=== PATIENT | female | born 1970 | race Caucasian/White ===

== ENCOUNTER 2022-11-26 14:53 | Emergency (ER) | payer BC, SELFPAY ==
[2022-11-26 15:03] VITALS: BP 148/96; PULSE 73; RESP 18; TEMP 36.2; O2SAT 98; BMI 28.3
--- NOTE | 2022-11-26 15:23 | ED_ITS ---
HPI - General Adult General Chief complaint: Unspecified Complaint, Adult Stated complaint: rectal bleeding Time Seen by Provider: 11/26/22 15:14 History of Present Illness HPI narrative: rectal bleeding x a month. over the last 1 -2 years hx of constipation with fissure and hemrroids. now finding blood when ever she wipes rectum. states she has a prolapse that started a few weeks ago. thinks she has a parasite. docotor [place]. a lot of bloating and gas lately. exhausted. 52-year-old woman presenting to the emergency department the number of complaints. She has been struggling with constipation noting history of fissure and hemorrhoids. She is actually finding blood now dripping out on the floor sometimes. Persistent bleeding when wiping after bowel movements. She believe she has got a rectal prolapse starting maybe a couple weeks ago. Increasingly tired. Months of bloating and gas she says. Normally sees primary care provider at the [facility] [place] in [place] who is out of the country at the moment. Is concerned that she has a parasite. Lives in town and has dogs. Notes that her kids play in sand box at school. Otherwise does not identify any particular source. No rash. Nuclear IBS history. Later mentions that she has been having some low back pain across her low back over the last week. Does recall specific injury. More remote history of back pain and history of ablation. Related Data Home Medications Medication Instructions Recorded Confirmed No Known Home Medications 11/26/22 11/26/22 Allergies Allergy/AdvReac Type Severity Reaction Status Date / Time No Known Drug Allergies Allergy Verified 11/26/22 15:07 Review of Systems Status of ROS: Reports: 6 or more systems reviewed and unremarkable except as noted in History and below [facility] Social History Smoking Status: Former smoker How often do you have a drink containing alcohol: never AUDIT-C Alcohol total score: 0 Non-prescribed substance use: denies use Exam Narrative: Exam Narrative: New pleasant. Wearing glasses. Interacting with her phone. Breathing easily. Lungs are clear. Heart in regular rate and rhythm. Abdomen with normoactive bowel sounds. Generally full. No appreciable masses. Well-perfused peripherally. Lower extremities are without edema. Skin is warm and dry without evidence of rash.. Transitions in the bed without notable difficulty. With machine group leader present I do evaluate the anal area. There is are noninflamed hemorrhoidal tissue at the 6 o'clock position along with small amount at the 12 o'clock position with a divot that I would associate with possible fissure. Suggestion of smaller hemorrhoidal tissue with a small thrombus at the 2 o'clock position; very subtle. Noninflamed nor tender here. Placement anoscope I do not see any active bleeding although small spot of blood forms at the distal aspect of the anoscope. Const: Vital Signs, click to edit/add: Vital Signs - 24 hr 11/26/22 15:03 Temperature 97.1 F L Pulse Rate [Pulse Oximeter] 73 Respiratory Rate 18 Blood Pressure [Ri ght Upper Arm] 148/96 H Pulse Oximetry 98 Oxygen Delivery Me thod Room Air Documenting provider has reviewed patient's vital signs: yes Course Vital Signs Vital signs: Initial Vital Signs Temperature 97.1 F L 11/26/22 15:03 Temperature Source Temporal Artery Scan 11/26/22 15:03 Pulse Rate 73 11/26/22 15:03 Respiratory Rate 18 11/26/22 15:03 Blood Pressure 148/96 H 11/26/22 15:03 Blood Pressure Mean 113 H 11/26/22 15:03 Blood Pressure Position Supine 11/26/22 15:03 Pulse Oximetry 98 11/26/22 15:03 Oxygen Delivery Method Room Air 11/26/22 15:03 Vital Signs Temperature 97.1 F L 11/26/22 15:03 Pulse Rate 73 11/26/22 15:03 Respiratory Rate 18 11/26/22 15:03 Blood Pressure 148/96 H 11/26/22 15:03 Pulse Oximetry 98 11/26/22 15:03 Oxygen Delivery Method Room Air 11/26/22 15:03 Temperature 97.1 F L 11/26/22 15:03 Pulse Rate 73 11/26/22 15:03 Respiratory Rate 18 11/26/22 15:03 Blood Pressure 148/96 H 11/26/22 15:03 Pulse Oximetry 98 11/26/22 15:03 Oxygen Delivery Method Room Air 11/26/22 15:03 Medical Decision Making MDM Narrative Medical decision making narrative: She does have some concerns of potential anemia given this recent bleeding. I do not see any brisk bleeding. We can check labs though. The for any indication of parasitic infection though I think this is unlikely. Likely will need to be providing treatment for constipation. With this in mind also TSH. Abdominal x-ray be done as well. Constipation probably contributing to some no passage bleeding. Would anticipate the need for colonoscopy at some point outpatient. Reassuring labs. By my read there is large amount of colonic stool. No air-fluid levels on x- ray. Did dispense lidocaine patch. No further interventions. See patient discharge plan Lab Data Lab results reviewed: Yes I reviewed the patient's lab results Labs: Lab Results 11/26/22 Range/Units 16:00 WBC 6.67 (4.50-11.00) K/uL RBC 4.34 (4.00-5.20) m/uL Hgb 13.0 (12.0-16.0) gm/dL Hct 39.2 (33.0-51.0) % MCV 90 (80-100) fL MCH 30 (26-34) pg MCHC 33 (32-36) gm/dL RDW Coeff of Shreyas 12.5 (11.5-15.5) % Plt Count 317 (140-440) K/uL Neut % (Auto) 61.7 (42.0-72.0) % Lymph % (Auto) 27.7 (20-44) % [place] % (Auto) 8.4 (0.0-11.0) % Eos % (Auto) 1.5 (0.0-7.0) % Baso % (Auto) 0.7 (0.0-3.0) % Neut # (Auto) 4.11 (1.7-7.0) K/uL Lymph # (Auto) 1.85 (0.90-2.90) K/uL [place] # (Auto) 0.60 (0.00-0.90) K/UL Eos # (Auto) 0.10 (0.00-0.50) K/uL Baso # (Auto) 0.05 (0.00-0.30) K/uL Abs Immat Gran (auto) 0.00 (0.00-0.30) K/uL Imm/Tot Granulo (auto) 0.0 % Sodium 138 (135-149) mmol/L Potassium 3.8 (3.6-5.1) mmol/L Chloride 104 (96-114) mmol/L Carbon Dioxide 24 (20-32) mmol/L Anion Gap 10 (7-15) mEq/L BUN 16 (7-30) mg/dL Creatinine 0.8 (0.5-1.5) mg/dL Estimated Creat Clear 69.42 Estimated GFR 88 ml/min Glucose 76 (60-115) mg/dL Calcium 9.0 (8.4-10.6) mg/dL C-Reactive Protein 0.6 (0.5-1.0) mg/dL TSH 0.414 (0.270-4.20) uIU/mL Discharge Plan Discharge Clinical Impression: Fatigue, Abdominal bloating, BRBPR (bright red blood per rectum), Sacroiliac joint pain, Constipation Patient Disposition: Home, Self-Care Condition: Improved Additional Instructions: Continue to focus on hydration. I would add a couple of doses of MiraLax equivalent to your fluids daily. Alternatively could use of fiber supplement like Benefiber equivalent. Adjust these additives to stool consistency as discussed. See how things are for 2 weeks. I would in that time try to establish primary care follow-up visit. At that visit you can discuss fatigue, workup for that, and any symptoms of abdominal bloating that may remain. Also whether not it would be time to pursue a repeat colonoscopy. Do your best to get quality and regular sleep. Try to get in a little heart pumping exercise daily. I will let you know if Radiology has anything further to say about your abdominal x-ray. If you think this lidocaine patch is helpful, can purchase more [id number]. See handout on sacroiliac pain for treatment and exercise recommendations. Might need follow-up with physical therapy; this could also be arranged to primary care. Prescriptions: No Action No Known Home Medications Follow Up/Referrals: Radha Miller MD [Staff Physician] - Stand Alone Forms: Disability Care Givers Info Instructions
--- OUTSIDE RECORDS SUMMARY | 2022-11-26 16:01 | XMS_ITS | Continuity of Care Document ---
Author Name Unknown Organization [facility] Address [address] [place] [address] Phone Care Team Providers Care Professor Of Geology Name Role Phone Miranda Farris MD Unavailable Unavailable Allergies, Adverse Reactions, Alerts Substance Reaction Status Criticality HYDROCODONE BITARTRATE Itching Active No In formation acetaminophen Itching Active No Information Medications Medication Instructions Dosage Effective Dates (start - stop) Status Comments Celebrex 200 mg capsule TAKE 1 CAPSULE B Y MOUTH TWICE A DAY - Active HYDROXYCHLOROQUINE 200 MG TAB TAKE 1 TABLET BY MOUTH TWICE A DAY 200 MG - Active HRT Base Botanical cream - Active naltrexone 50 mg tablet COMPOUNDED lower dose - Active PHENTERMINE HCL (unknown strength) take 1 capsule by oral route every day before breakfast Not Available - Active multivitamin Cap take 1 capsule by oral route every day - Active CELECOXIB 200 MG CAPSULE TAKE 1 CAPSULE BY MOUTH TWICE A DAY - No Longer Active Procedures Procedure Date Unlisted E&M Service No Show Simponi Aria (golimumab) Chemo, Iv Infusion, 1 Hr Normal Saline Solution Infus Simponi Aria (golimumab) Chemo, Iv Infusion, 1 Hr Normal Saline Solution Infus Office/Outpatient Visit, Est Routine Venipuncture Rbc Sed Rate, Nonautomated Assay Of Serum Albumin Assay Of Creatinine Transferase (Ast) (Sgot) Alanine Amino (Alt) (Sgpt) CReactive Protein Complete Cbc WAuto Diff Wbc Simponi Aria (golimumab) Chemo, Iv Infusion, 1 Hr Normal Saline Solution Infus Simponi Aria (golimumab) Chemo, Iv Infusion, 1 Hr Normal Saline Solution Infus Office/Outpatient Visit, Est Routine Venipuncture Rbc Sed Rate, Nonautomated Assay Of Serum Albumin Assay Of Creatinine Transferase (Ast) (Sgot) Alanine Amino (Alt) (Sgpt) CReactive Protein Complete Cbc WAuto Diff Wbc Simponi Aria (golimumab) Chemo, Iv Infusion, 1 Hr Normal Saline Solution Infus Simponi Aria (golimumab) Chemo, Iv Infusion, 1 Hr Normal Saline Solution Infus Office/Outpatient Visit, Est Routine Venipuncture Rbc Sed Rate, Nonautomated Assay Of Serum Albumin Assay Of Creatinine Transferase (Ast) (Sgot) Alanine Amino (Alt) (Sgpt) CReactive Protein Complete Cbc WAuto Diff Wbc Simponi Aria (golimumab) Chemo, Iv Infusion, 1 Hr Normal Saline Solution Infus Simponi Aria (golimumab) Chemo, Iv Infusion, 1 Hr Normal Saline Solution Infus Office/Outpatient Visit, Est Routine Venipuncture Rbc Sed Rate, Nonautomated Assay Of Serum Albumin Assay Of Creatinine Transferase (Ast) (Sgot) Alanine Amino (Alt) (Sgpt) CReactive Protein Complete Cbc WAuto Diff Wbc Simponi Aria (golimumab) Chemo, Iv Infusion, 1 Hr Normal Saline Solution Infus Office/Outpatient Visit, Est Routine Venipuncture Rbc Sed Rate, Nonautomated Assay Of Serum Albumin Assay Of Creatinine Transferase (Ast) (Sgot) Alanine Amino (Alt) (Sgpt) CReactive Protein Complete Cbc WAuto Diff Wbc Simponi Aria (golimumab) Chemo, Iv Infusion, 1 Hr Normal Saline Solution Infus Office/Outpatient Visit, Est Routine Venipuncture Specimen Handling Rbc Sed Rate, Nonautomated Assay Of Serum Albumin Assay Of Creatinine Transferase (Ast) (Sgot) Alanine Amino (Alt) (Sgpt) CReactive Protein Complete Cbc WAuto Diff Wbc Remicade Infliximab Chemo, Iv Infusion, 1 Hr Chemo, Iv Infusion, Addl Hr Normal Saline Solution Infus Remicade Infliximab Chemo, Iv Infusion, 1 Hr Chemo, Iv Infusion, Addl Hr Normal Saline Solution Infus Remicade Infliximab Chemo, Iv Infusion, 1 Hr Chemo, Iv Infusion, Addl Hr Normal Saline Solution Infus Office/Outpatient Visit, Est Routine Venipuncture Rbc Sed Rate, Nonautomated Assay Of Serum Albumin Assay Of Creatinine Transferase (Ast) (Sgot) Alanine Amino (Alt) (Sgpt) CReactive Protein Complete Cbc WAuto Diff Wbc Remicade Infliximab Chemo, Iv Infusion, 1 Hr Chemo, Iv Infusion, Addl Hr Normal Saline Solution Infus Remicade Infliximab Chemo, Iv Infusion, 1 Hr Chemo, Iv Infusion, Addl Hr Normal Saline Solution Infus Office/Outpatient Visit, Est Routine Venipuncture Rbc Sed Rate, Nonautomated Assay Of Serum Albumin Assay Of Creatinine Transferase (Ast) (Sgot) Alanine Amino (Alt) (Sgpt) CReactive Protein Complete Cbc WAuto Diff Wbc Remicade Infliximab Chemo, Iv Infusion, 1 Hr Chemo, Iv Infusion, Addl Hr Normal Saline Solution Infus Remicade Infliximab Chemo, Iv Infusion, 1 Hr Chemo, Iv Infusion, Addl Hr Office/Outpatient Visit, Est Routine Venipuncture Rbc Sed Rate, Nonautomated Assay Of Serum Albumin Assay Of Creatinine Transferase (Ast) (Sgot) Alanine Amino (Alt) (Sgpt) CReactive Protein Complete Cbc WAuto Diff Wbc Remicade Infliximab Chemo, Iv Infusion, 1 Hr Chemo, Iv Infusion, Addl Hr Normal Saline Solution Infus Remicade Infliximab Chemo, Iv Infusion, 1 Hr Chemo, Iv Infusion, Addl Hr Normal Saline Solution Infus Office/Outpatient Visit, Est Routine Venipuncture Rbc Sed Rate, Nonautomated Assay Of Serum Albumin Assay Of Creatinine Transferase (Ast) (Sgot) Alanine Amino (Alt) (Sgpt) CReactive Protein Complete Cbc WAuto Diff Wbc Remicade Infliximab Chemo, Iv Infusion, 1 Hr Chemo, Iv Infusion, Addl Hr Normal Saline Solution Infus Remicade Infliximab Chemo, Iv Infusion, 1 Hr Chemo, Iv Infusion, Addl Hr Normal Saline Solution Infus Office/Outpatient Visit, Est Routine Venipuncture Rbc Sed Rate, Nonautomated Assay Of Serum Albumin Assay Of Creatinine Transferase (Ast) (Sgot) Alanine Amino (Alt) (Sgpt) CReactive Protein Tb Test, Cell Immun Measure Complete Cbc WAuto Diff Wbc Remicade Infliximab Chemo, Iv Infusion, 1 Hr Chemo, Iv Infusion, Addl Hr Normal Saline Solution Infus Office/Outpatient Visit, Est Routine Venipuncture Complete Cbc WAuto Diff Wbc Rbc Sed Rate, Nonautomated Assay Of Serum Albumin Assay Of Creatinine Transferase (Ast) (Sgot) Alanine Amino (Alt) (Sgpt) CReactive Protein Remicade Infliximab Chemo, Iv Infusion, 1 Hr Chemo, Iv Infusion, Addl Hr Normal Saline Solution Infus Remicade Infliximab Chemo, Iv Infusion, 1 Hr Chemo, Iv Infusion, Addl Hr Normal Saline Solution Infus Remicade Infliximab Chemo, Iv Infusion, 1 Hr Chemo, Iv Infusion, Addl Hr Normal Saline Solution Infus Office/Outpatient Visit, Est Routine Venipuncture Rbc Sed Rate, Nonautomated CReactive Protein Assay Of Serum Albumin Assay Of Creatinine Transferase (Ast) (Sgot) Alanine Amino (Alt) (Sgpt) Complete Cbc WAuto Diff Wbc Remicade Infliximab Chemo, Iv Infusion, 1 Hr Chemo, Iv Infusion, Addl Hr Normal Saline Solution Infus Remicade Infliximab Chemo, Iv Infusion, 1 Hr Chemo, Iv Infusion, Addl Hr Normal Saline Solution Infus Office/Outpatient Visit, Est Routine Venipuncture Complete Cbc WAuto Diff Wbc Rbc Sed Rate, Nonautomated CReactive Protein Assay Of Serum Albumin Assay Of Creatinine Transferase (Ast) (Sgot) Alanine Amino (Alt) (Sgpt) Remicade Infliximab Chemo, Iv Infusion, 1 Hr Chemo, Iv Infusion, Addl Hr Normal Saline Solution Infus Remicade Infliximab Chemo, Iv Infusion, 1 Hr Chemo, Iv Infusion, Addl Hr Normal Saline Solution Infus Office/Outpatient Visit, Est Routine Venipuncture Complete Cbc WAuto Diff Wbc Rbc Sed Rate, Nonautomated CReactive Protein Assay Of Serum Albumin Assay Of Creatinine Transferase (Ast) (Sgot) Alanine Amino (Alt) (Sgpt) Remicade Infliximab Chemo, Iv Infusion, 1 Hr Chemo, Iv Infusion, Addl Hr Normal Saline Solution Infus Remicade Infliximab Chemo, Iv Infusion, 1 Hr Chemo, Iv Infusion, Addl Hr Normal Saline Solution Infus Office/Outpatient Visit, Est Routine Venipuncture Complete Cbc WAuto Diff Wbc Rbc Sed Rate, Nonautomated CReactive Protein Assay Of Serum Albumin Assay Of Creatinine Transferase (Ast) (Sgot) Alanine Amino (Alt) (Sgpt) Office/Outpatient Visit, Est Routine Venipuncture Complete Cbc WAuto Diff Wbc Rbc Sed Rate, Nonautomated CReactive Protein Assay Of Serum Albumin Assay Of Creatinine Transferase (Ast) (Sgot) Alanine Amino (Alt) (Sgpt) Office/Outpatient Visit, Est Routine Venipuncture Complete Cbc WAuto Diff Wbc Rbc Sed Rate, Nonautomated CReactive Protein Assay Of Serum Albumin Assay Of Creatinine Transferase (Ast) (Sgot) Alanine Amino (Alt) (Sgpt) Office/Outpatient Visit, Est Routine Venipuncture Complete Cbc WAuto Diff Wbc Rbc Sed Rate, Nonautomated CReactive Protein Assay Of Serum Albumin Assay Of Creatinine Transferase (Ast) (Sgot) Alanine Amino (Alt) (Sgpt) Office/Outpatient Visit, Est Routine Venipuncture Complete Cbc WAuto Diff Wbc Rbc Sed Rate, Nonautomated CReactive Protein Assay Of Serum Albumin Assay Of Creatinine Transferase (Ast) (Sgot) Alanine Amino (Alt) (Sgpt) Specimen Handling Office/Outpatient Visit, Est Routine Venipuncture Complete Cbc WAuto Diff Wbc Rbc Sed Rate, Nonautomated CReactive Protein Assay Of Serum Albumin Assay Of Creatinine Transferase (Ast) (Sgot) Alanine Amino (Alt) (Sgpt) Office/Outpatient Visit, Est Office/Outpatient Visit, Est Office/Outpatient Visit, Est Routine Venipuncture Complete Cbc WAuto Diff Wbc Rbc Sed Rate, Nonautomated CReactive Protein Assay Of Serum Albumin Assay Of Creatinine Transferase (Ast) (Sgot) Alanine Amino (Alt) (Sgpt) Office/Outpatient Visit, Est Routine Venipuncture Complete Cbc WAuto Diff Wbc Rbc Sed Rate, Nonautomated CReactive Protein Assay Of Serum Albumin Assay Of Creatinine Transferase (Ast) (Sgot) Alanine Amino (Alt) (Sgpt) Office/Outpatient Visit, Est Routine Venipuncture Complete Cbc WAuto Diff Wbc Rbc Sed Rate, Nonautomated CReactive Protein Assay Of Serum Albumin Assay Of Creatinine Transferase (Ast) (Sgot) Alanine Amino (Alt) (Sgpt) Office/Outpatient Visit, Est Routine Venipuncture Complete Cbc WAuto Diff Wbc Rbc Sed Rate, Nonautomated CReactive Protein Assay Of Serum Albumin Assay Of Creatinine Transferase (Ast) (Sgot) Alanine Amino (Alt) (Sgpt) Office/Outpatient Visit, Est Routine Venipuncture Complete Cbc WAuto Diff Wbc Rbc Sed Rate, Nonautomated CReactive Protein Assay Of Serum Albumin Assay Of Creatinine Transferase (Ast) (Sgot) Alanine Amino (Alt) (Sgpt) No Charge Nurse Visit Office/Outpatient Visit, Est Routine Venipuncture Complete Cbc WAuto Diff Wbc Rbc Sed Rate, Nonautomated CReactive Protein Assay Of Serum Albumin Assay Of Creatinine Transferase (Ast) (Sgot) Alanine Amino (Alt) (Sgpt) Office/Outpatient Visit, Est Routine Venipuncture Specimen Handling Complete Cbc WAuto Diff Wbc Rbc Sed Rate, Nonautomated CReactive Protein Assay Of Serum Albumin Assay Of Creatinine Transferase (Ast) (Sgot) Alanine Amino (Alt) (Sgpt) Office/Outpatient Visit, Est Office/Outpatient Visit, Est Advance Directives Directive Yes / No Effective Date File Name No Information Encounters Encounter Description Practice Location Reason(s) For Visit Diagnoses Date Provider Providers Copied on Encounter [facility] , [address], [place], [address], [place] tel:[phone] [facility] , No Information 2 Brenton Jean. [facility] [address], [place], [address], [place]. tel:[phone] [facility] , [address], [place], [address], [place] tel:[phone] [facility] , No Information 2 Janie Strong. [facility] [address], [place], [address], [place]. tel:[phone] Unlisted E&M Service No Show [facility] , [address], [place], [address], [place] tel:[phone] [facility] , No Information 2 Brenton Jean. [facility] [address], [place], [address], [place]. tel:[phone] Referring Provider: Miradna Foster, [facility] [address], [place], [address]. tel:[phone] [facility] , [address], [place], [address], [place] tel:[phone] [facility] , No Information 2 Brenton Jean. [facility] [address], [place], [address], [place]. tel:[phone] [facility] , [address], [place], [address], [place] tel:[phone] [facility] , No Information 2 Brenton Jean. [facility] [address], [place], [address], [place]. tel:[phone] Referring Provider: Miranda Foster, [facility] [address], [place], [address]. tel:[phone] [facility] , [address], [place], [address], [place] tel:[phone] [facility] , No Information 2 Brenton Jean. [facility] [address], [place], [address], [place]. tel:[phone] [facility] , [address], [place], [address], [place] tel:[phone] [facility] , No Information 2 Janie Strong. [facility] [address], [place], [address], [place]. tel:[phone] Referring Provider: Tae Arcos, [facility] [address], [place], [address]. tel:[phone] Office/Outpa tient Visit, Est [facility] , [address], [place], [address], [place] tel:[phone] [facility] , Follow Up of Rheumatoid arthritis (chief complaint) RA w/o rheumatoid factor of multiple sitesPrimary generalized (osteo)arthr itisOther termination clerk (current) drug therapyLow back pain 2 Brenton Jean. [facility] [address], [place], [address], [place]. tel:[phone] Referring Provider: Miranda Foster, [facility] [address], [place], [address]. tel:[phone] [facility] , [address], [place], [address], [place] tel:[phone] [facility] , No Information 1 Brenton Jean. [facility] [address], [place], [address], [place]. tel:[phone] Referring Provider: Miranda Foster, [facility] [address], [place], [address]. tel:[phone] [facility] , [address], [place], [address], [place] tel:[phone] [facility] , No Information 1 Skemp Inderjit. [facility] [address], [place], [address], [place]. tel:[phone] Referring Provider: Inderjit Skemp A, [facility] [address], [place], [address]. tel:[phone] Office/Outpa tient Visit, Est [facility] , [address], [place], [address], [place] tel:[phone] [facility] , Follow Up of Rheumatoid arthritis (chief complaint) RA w/o rheumatoid factor of multiple sitesPrimary generalized (osteo)arthr itisFibromya lgiaOther chcf (current) drug therapyLow back painInsomnia Oct- 1 Brenton Jean. [facility] [address], [place], [address], [place]. tel:[phone] Referring Provider: Miranda Foster, [facility] [address], [place], [address]. tel:[phone] [facility] , [address], [place], [address], [place] tel:[phone] [facility] , No Information 1 Brenton Jean. [facility] [address], [place], [address], [place]. tel:[phone] Referring Provider: Miranda Foster, [facility] [address], [place], [address]. tel:[phone] [facility] , [address], [place], [address], [place] tel:[phone] [facility] , No Information 1 Diya Garsia. [facility] [address], [place], [address], [place]. tel:[phone] Referring Provider: Ady Ellsworth, [facility] [address], [place], [address]. tel:[phone] Office/Outpa tient Visit, Est [facility] , [address], [place], [address], [place] tel:[phone] [facility] , Follow Up of Rheumatoid arthritis (chief complaint) RA w/o rheumatoid factor of multiple sitesPrimary generalized (osteo)arthr itisFibromya lgiaOther termination clerk (current) drug therapyLow back pain 1 Brenton Jean. [facility] [address], [place], [address], [place]. tel:[phone] Referring Provider: Miranda Foster, [facility] [address], [place], [address]. tel:[phone] [facility] , [address], [place], [address], [place] tel:[phone] [facility] , No Information 1 Brenton Jean. [facility] [address], [place], [address], [place]. tel:[phone] Referring Provider: Miranda Foster, [facility] [address], [place], [address]. tel:[phone] [facility] , [address], [place], [address], [place] tel:[phone] [facility] , No Information 1 Diya Garsia. [facility] [address], [place], [address], [place]. tel:[phone] Referring Provider: Ady Ellsworth, [facility] [address], [place], [address]. tel:[phone] Office/Outpa tient Visit, Est [facility] , [address], [place], [address], [place] tel:[phone] [facility] , Follow Up of Rheumatoid arthritis (chief complaint) RA w/o rheumatoid factor of multiple sitesPrimary generalized (osteo)arthr itisFibromya lgiaOther chcf (current) drug therapy 1 Brenton Jean. [facility] [address], [place], [address], [place]. tel:[phone] Referring Provider: Miranda Foster, [facility] [address], [place], [address]. tel:[phone] [facility] , [address], [place], [address], [place] tel:[phone] [facility] , No Information 1 Brenton Jean. [facility] [address], [place], [address], [place]. tel:[phone] Referring Provider: Miranda Foster, [facility] [address], [place], [address]. tel:[phone] Office/Outpa tient Visit, Est [facility] , [address], [place], [address], [place] tel:[phone] [facility] , Follow Up of Rheumatoid arthritis (chief complaint) RA w/o rheumatoid factor of multiple sitesFibromy algiaOther termination clerk (current) drug therapyPrima ry generalized (osteo)arthr itisInsomnia Dec- 0 Brenton Jean. [facility] [address], [place], [address], [place]. tel:[phone] Referring Provider: Miranda Foster, [facility] [address], [place], [address]. [phone] [facility] , [address], [place], [address], [place] tel:[phone] [facility] , No Information 0 Melinda Wilson. [facility] [address], [place], [address], [place]. tel:[phone] Referring Provider: Katie Foster, [facility] [address], [place], [address]. tel:[phone] Office/Outpa tient Visit, Est [facility] , [address], [place], [address], [place] tel:[phone] [facility] , Follow Up of Rheumatoid arthritis (chief complaint) RA w/o rheumatoid factor of multiple sitesFibromy algiaOther chcf (current) drug therapyPrima ry generalized (osteo)arthr itisFatigue Oct- 0 Brenton Jean. [facility] [address], [place], [address], [place]. tel:[phone] Referring Provider: Miranda Foster, [facility] [address], [place], [address]. tel:[phone] [facility] , [address], [place], [address], [place] tel:[phone] [facility] , No Information 0 Melinda Katie. [facility] [address], [place], [address], [place]. tel:[phone] Referring Provider: Katie Foster, [facility] [address], [place], [address]. tel:[phone] [facility] , [address], [place], [address], [place] tel:[phone] [facility] , No Information 0 Brenton Jean. [facility] [address], [place], [address], [place]. tel:[phone] Referring Provider: Miranda Foster, [facility] [address], [place], [address]. tel:[phone] [facility] , [address], [place], [address], [place] tel:[phone] [facility] , No Information 0 Brenton Jean. [facility] [address], [place], [address], [place]. tel:[phone] Referring Provider: Miranda Foster, [facility] [address], [place], [address]. tel:[phone] Office/Outpa tient Visit, Est [facility] , [address], [place], [address], [place] tel:[phone] [facility] , Follow Up of Rheumatoid arthritis (chief complaint) Carpal tunnel syndrome, left upper limbRA w/o rheumatoid factor of multiple sitesFibromy algiaOther chcf (current) drug therapyPrima ry generalized (osteo)arthr itis 0 Brenton Jean. [facility] [address], [place], [address], [place]. tel:[phone] Referring Provider: Miranda Foster, [facility] [address], [place], [address]. tel:[phone] [facility] , [address], [place], [address], [place] tel:[phone] [facility] , No Information 0 Brenton Jean. [facility] [address], [place], [address], [place]. tel:[phone] Referring Provider: Miranda Foster, [facility] [address], [place], [address]. tel:[phone] [facility] , [address], [place], [address], [place] tel:[phone] [facility] , No Information 0 Brenton Jean. [facility] [address], [place], [address], [place]. tel:[phone] Referring Provider: Miranda Foster, [facility] [address], [place], [address]. tel:[phone] Office/Outpa tient Visit, Est [facility] , [address] [address], [place], [address], [place] tel:[phone] [facility] , Follow Up of Rheumatoid arthritis (chief complaint) RA w/o rheumatoid factor of multiple sitesFibromy algiaOther termination clerk (current) drug therapyCarpa l tunnel syndrome, left upper limbPlantar fascial fibromatosis 0- 0 Brenton Jean. [facility] [address], [place], [address], [place]. tel:[phone] Referring Provider: Miranda Foster, [facility] [address], [place], [address]. tel:[phone] [facility] , [address], [place], [address], [place] tel:[phone] [facility] , No Information 0 Brenton Jean. [facility] [address], [place], [address], [place]. tel:[phone] Referring Provider: Miranda Foster, [facility] [address], [place], [address]. tel:[phone] [facility] , [address], [place], [address], [place] tel:[phone] [facility] , No Information 9 Brenton Jean. [facility] [address], [place], [address], [place]. tel:[phone] Referring Provider: Miranda Foster, [facility] [address], [place], [address]. tel:[phone] Office/Outpa tient Visit, Est [facility] , [address], [place], [address], [place] tel:[phone] [facility] , Follow Up of Rheumatoid arthritis (chief complaint) RA w/o rheumatoid factor of multiple sitesFibromy algiaOther chcf (current) drug therapy Brenton Jean. [facility] , [facility] [address], [place], [address], [place]. tel:[phone] Referring Provider: Miranda Foster, [facility] [address], [place], [address]. tel:[phone] [facility] , [address], [place], [address], [place] tel:[phone] [facility] , No Information Brenton Jean. [facility] [address], [place], [address], [place]. tel:[phone] Referring Provider: Miranda Foster, [facility] [address], [place], [address]. tel:[phone] [facility] , [address], [place], [address], [place] tel:[phone] [facility] , No Information Brenton Jean. [facility] [address], [place], [address], [place]. tel:[phone] Referring Provider: Miranda Foster, [facility] [address], [place], [address]. tel:[phone] Office/Outpa tient Visit, Est [facility] , [address], [place], [address], [place] tel:[phone] [facility] , Follow Up of Rheumatoid arthritis (chief complaint) RA w/o rheumatoid factor of multiple sitesFibromy algiaOther termination clerk (current) drug therapy Brenton Jean. [facility] [address], [place], [address], [place]. tel:[phone] Referring Provider: Miranda Foster, [facility] [address], [place], [address]. tel:[phone] [facility] , [address], [place], [address], [place] tel:[phone] [facility] , No Information Brenton Jean. [facility] [address], [place], [address], [place]. tel:[phone] Referring Provider: Miranda Foster, [facility] [address], [place], [address]. tel:[phone] [facility] , [address], [place], [address], [place] tel:[phone] [facility] , No Information Skemp Inderjit. [facility] [address], [place], [address], [place]. tel:[phone] Referring Provider: Inderjit Sktr A, [facility] , [facility] [address], [place], [address]. tel:[phone] Office/Outpa tient Visit, Est [facility] , [address], [place], [address], [place] tel:[phone] [facility] , Follow Up of Rheumatoid arthritis (chief complaint) RA w/o rheumatoid factor of multiple sitesFibromy algiaOther chcf (current) drug therapy 9 Brenton Jean. [facility] [address], [place], [address], [place]. tel:[phone] Referring Provider: Miranda Foster, [facility] [address], [place], [address]. tel:[phone] [facility] , [address], [place], [address], [place] tel:[phone] [facility] , No Information 9 Janie Strong. [facility] [address], [place], [address], [place]. tel:[phone] Referring Provider: Tae Arcos, [facility] [address], [place], [address]. tel:[phone] Office/Outpa tient Visit, Est [facility] , [address], [place], [address], [place] tel:[phone] [facility] , Follow Up of Rheumatoid arthritis (chief complaint) RA w/o rheumatoid factor of multiple sitesFibromy algiaOther termination clerk (current) drug therapy 8 Brenton Jean. [facility] [address], [place], [address], [place]. tel:[phone] Referring Provider: Miranda Foster, [facility] [address], [place], [address]. tel:[phone] [facility] , [address], [place], [address], [place] tel:[phone] [facility] , No Information 8 Brenton Jean. [facility] [address], [place], [address], [place]. tel:[phone] Referring Provider: Miranda Foster, [facility] [address], [place], [address]. tel:[phone] [facility] , [address], [place], [address], [place] tel:[phone] [facility] , No Information 8 Brenton Jean. [facility] [address], [place], [address], [place]. tel:[phone] Referring Provider: Miranda Foster, [facility] [address], [place], [address]. tel:[phone] [facility] , [address], [place], [address], [place] tel:[phone] [facility] , No Information 8 John Jansen. [facility] , [facility] [address], [place], [address], [place]. tel:[phone] Referring Provider: Inderjit Skemp A, [facility] [address], [place], [address]. tel:[phone] [facility] , [address], [place], [address], [place] tel:[phone] [facility] , RA w/o rheumatoid factor of multiple sites 8 Diya Garsia. [facility] [address], [place], [address], [place]. tel:[phone] Referring Provider: Ady Ellsworth, [facility] [address], [place], [address]. tel:[phone] Office/Outpa tient Visit, Est [facility] , [address], [place], [address], [place] tel:[phone] [facility] , Follow Up of Rheumatoid arthritis (chief complaint) RA w/o rheumatoid factor of multiple sitesFibromy algiaOther termination clerk (current) drug therapy 8 Brenton Jean. [facility] [address], [place], [address], [place]. tel:[phone] Referring Provider: Miranda Foster, [facility] [address], [place], [address]. tel:[phone] [facility] , [address], [place], [address], [place] tel:[phone] [facility] , RA w/o rheumatoid factor of multiple sites 8 Diya Garsia. [facility] [address], [place], [address], [place]. tel:[phone] Referring Provider: Ady Ellsworth, [facility] [address], [place], [address]. tel:[phone] [facility] , [address], [place], [address], [place] tel:[phone] [facility] , RA w/o rheumatoid factor of multiple sites 8 Diya Garsia. [facility] , [facility] [address], [place], [address], [place]. tel:[phone] Referring Provider: Ady Ellsworth, [facility] [address], [place], [address]. tel:[phone] Office/Outpa tient Visit, Est [facility] , [address], [place], [address], [place] tel:[phone] [facility] , Follow Up of Rheumatoid arthritis (chief complaint) RA w/o rheumatoid factor of multiple sitesOther termination clerk (current) drug therapyFibro myalgia Brenton Jean. [facility] , [facility] [address], [place], [address], [place]. tel:[phone] Referring Provider: Miranda Foster, [facility] [address], [place], [address]. tel:[phone] [facility] , [address], [place], [address], [place] tel:[phone] [facility] , RA w/o rheumatoid factor of multiple sites 7 John Jansen. [facility] , [facility] [address], [place], [address], [place]. tel:[phone] Referring Provider: Inderjit Nathan, [facility] [address], [place], [address]. tel:[phone] [facility] , [address], [place], [address], [place] tel:[phone] [facility] , RA w/o rheumatoid factor of multiple sites Oct- 7 Skemp Inderjit. [facility] , [facility] [address], [place], [address], [place]. tel:[phone] Referring Provider: Inderjit Lopez A, [facility] , [facility] [address], [place], [address]. tel:[phone] Office/Outpa tient Visit, Est [facility] , [address], [place], [address], [place] tel:[phone] [facility] , Follow Up of Rheumatoid arthritis (chief complaint) RA w/o rheumatoid factor of multiple sitesFibromy algiaOther chcf (current) drug therapyPlant ar fasciitis Oct- Brenton Jean. [facility] , [facility] [address], [place], [address], [place]. tel:[phone] Referring Provider: Miranda Foster, [facility] [address], [place], [address]. tel:[phone] [facility] , [address], [place], [address], [place] tel:[phone] [facility] , RA w/o rheumatoid factor of multiple sites 7 Brenton Jean. [facility] , [facility] [address], [place], [address], [place]. tel:[phone] Referring Provider: Miranda Foster, [facility] [address], [place], [address]. tel:[phone] [facility] , [address], [place], [address], [place] tel:[phone] [facility] , RA w/o rheumatoid factor of multiple sites 7 Clary Andres. [facility] , [facility] [address], [place], [address], [place]. tel:[phone] Referring Provider: Dmitry Rivero, [facility] [address], [place], [address]. tel:[phone] Office/Outpa tient Visit, Est [facility] , [address], [place], [address], [place] tel:[phone] [facility] , RA w/o rheumatoid factor of multiple sitesOther termination clerk (current) drug therapyFibro myalgia 7 Brenton Jean. [facility] , [facility] [address], [place], [address], [place]. tel:[phone] Referring Provider: Miranda Foster, [facility] [address], [place], [address]. tel:[phone] Office/Outpa tient Visit, Est [facility] , [address], [place], [address], [place] tel:[phone] [facility] , Follow Up of Rheumatoid arthritis (chief complaint) RA w/o rheumatoid factor of multiple sitesOther chcf (current) drug therapy 7 Brenton Jean. [facility] , [facility] [address], [place], [address], [place]. tel:[phone] Referring Provider: Miranda Foster, [facility] [address], [place], [address]. tel:[phone] Office/Outpa tient Visit, Est [facility] , [address], [place], [address], [place] tel:[phone] [facility] , Follow Up of Rheumatoid arthritis (chief complaint) RA w/o rheumatoid factor of multiple sitesOther termination clerk (current) drug therapyRash and other nonspecific skin eruption 7 Brenton Jean. [facility] , [facility] [address], [place], [address], [place]. tel:[phone] Referring Provider: Miranda Foster, [facility] [address], [place], [address]. tel:[phone] Office/Outpa tient Visit, Est [facility] , [address], [place], [address], [place] [phone] [facility] , Follow Up of Rheumatoid arthritis (chief complaint) RA w/o rheumatoid factor of multiple sitesOther termination clerk (current) drug therapy 6 Brenton Jean. [facility] , [facility] [address], [place], [address], [place]. tel:[phone] Referring Provider: Miranda Foster, [facility] [address], [place], [address]. [phone] Office/Outpa tient Visit, Est [facility] , [address], [place], [address], [place] tel:[phone] [facility] , Follow Up of Rheumatoid arthritis (chief complaint) RA w/o rheumatoid factor of multiple sitesOther termination clerk (current) drug therapyAbnor mal weight gain 6 Brenton Jean. [facility] , [facility] [address], [place], [address], [place]. tel:[phone] Referring Provider: Miranda Foster, [facility] [address], [place], [address]. tel:[phone] Office/Outpa tient Visit, Est [facility] , [address], [place], [address], [place] tel:[phone] [facility] , Follow Up of Rheumatoid arthritis (chief complaint) RA w/o rheumatoid factor of multiple sitesOther chcf (current) drug therapy 6 Brenton Jean. [facility] [address], [place], [address], [place]. tel:[phone] Referring Provider: Miranda Foster, [facility] [address], [place], [address]. tel:[phone] Office/Outpa tient Visit, Est [facility] , [address], [place], [address], [place] tel:[phone] [facility] , Follow Up of Rheumatoid arthritis (chief complaint) Pain in unspecified kneeRA w/o rheumatoid factor of multiple sitesOther chcf (current) drug therapy 6 Brenton Jean. [facility] [address], [place], [address], [place]. tel:[phone] Referring Provider: Miranda Foster [facility] [address], [place], [address]. tel:[phone] Office/Outpa tient Visit, Est [facility] , [address], [place], [address], [place] tel:[phone] [facility] , Follow Up of Rheumatoid arthritis (chief complaint) RA w/o rheumatoid factor of multiple sitesOther chcf (current) drug therapyPain in unspecified knee Brenton Jean. [facility] , [facility] [address], [place], [address], [place]. tel:[phone] Referring Provider: Miranda Foster, [facility] [address], [place], [address]. tel:[phone] Office/Outpa tient Visit, Est [facility] , [address], [place], [address], [place] tel:[phone] [facility] , Follow Up of Rheumatoid arthritis (chief complaint) Rheumatoid arthritisThe rapeutic Drug MonitoringOt itis media 5 Brenton Jean. [facility] , [facility] [address], [place], [address], [place]. tel:[phone] Referring Provider: Miranda Foster, [facility] [address], [place], [address]. tel:[phone] Office/Outpa tient Visit, Est [facility] , [address], [place], [address], [place] tel:[phone] [facility] , Follow Up of Rheumatoid arthritis (chief complaint) Rheumatoid arthritisThe rapeutic Drug MonitoringMy algia and myositis, unspecified 5 Brenton Jean. [facility] , [facility] [address], [place], [address], [place]. tel:[phone] Referring Provider: Miranda Foster, [facility] [address], [place], [address]. tel:[phone] Office/Outpa tient Visit, Est [facility] , [address], [place], [address], [place] tel:[phone] [facility] , Rheumatoid Arthritis (chief complaint) Rheumatoid ArthritisThe rapeutic Drug MonitoringMy algia and myositis, unspecified 5 Brenton Jean. [facility] , [facility] [address], [place], [address], [place]. tel:[phone] Referring Provider: Miranda Foster, [facility] [address], [place], [address]. [phone] Office/Outpa tient Visit, Est [facility] , [address], [place], [address], [place] tel:[phone] [facility] , Rheumatoid Arthritis (chief complaint) Rheumatoid ArthritisThe rapeutic Drug MonitoringMy algia and myositis, unspecifiedO ther musculoskele claudy symptoms referable to limbs 4 Brenton Jean. [facility] [address], [place], [address], [place]. tel:[phone] Referring Provider: Miranda Foster, [facility] [address], [place], [address]. tel:[phone] Office/Outpa tient Visit, Est [facility] , [address], [place], [address], [place] tel:[phone] [facility] , Rheumatoid Arthritis (chief complaint) Rheumatoid ArthritisThe rapeutic Drug Monitoring 4 Brenton Miranda. [facility] , [facility] [address], [place], [address], [place]. tel:[phone] Referring Provider: Miranda Foster, [facility] [address], [place], [address]. tel:[phone] [facility] , [address], [place], [address], [place] tel:[phone] [facility] , No Information 4 Brenton Jean. [facility] [address], [place], [address], [place]. tel:[phone] Referring Provider: Miranda Foster, [facility] [address], [place], [address]. tel:[phone] Office/Outpa tient Visit, Est [facility] , [address], [place], [address], [place] tel:[phone] [facility] , Rheumatoid Arthritis (chief complaint) Rheumatoid ArthritisThe rapeutic Drug Monitoring 4 Brenton Jean. [facility] [address], [place], [address], [place]. tel:[phone] Referring Provider: Miranda Foster, [facility] [address], [place], [address]. tel:[phone] Office/Outpa tient Visit, Est [facility] , [address], [place], [address], [place] tel:[phone] [facility] , Rheumatoid Arthritis (chief complaint) Unspecified inflammatory polyarthropa thyTherapeut ic Drug Monitoring 3 Brenton Jean. [facility] [address], [place], [address], [place]. tel:[phone] Referring Provider: Miranda Foster, [facility] [address], [place], [address]. [phone] Office/Outpa tient Visit, Est [facility] , [address], [place], [address], [place] [phone] [facility] , Inflammatory Polyarthropa thy (chief complaint) Unspecified inflammatory polyarthropa thy 3 Bela Jarquin. [address], [place], [place], [address], [place]. tel:[phone] Referring Provider: Britton Ellsworth, [address], [place], [address]. tel:[phone] Office/Outpa tient Visit, Est [facility] , [address], [place], [address], [place] tel:[phone] [facility] , Joint Pain (chief complaint) Unspecified inflammatory polyarthropa thy 3 Bela Jarquin. [address], [place], [place], [address], [place]. tel:[phone] Referring Provider: Britton Ellsworth, [address], [place], [address]. tel:[phone] Family History Family Member Type Diagnosis Age At Onset No Information Payers Payer name Insurance type Covered alliance party ID Authoriza tion(s) No Information Social History Type Description Quantity Date Captured Comments Sex Female Smoking Status No Information Chief Complaint And Reason For Visit No Information Reason For Referral Reason For Referral No Information History Of Present Illness Encounter Date Complaint History Of Prese nt Illness Follow Up of Rheumatoid arthriti s Follow Up of Rheumatoid arthriti s Follow Up of Rheumatoid arthriti s Follow Up of Rheumatoid arthriti s Follow Up of Rheumatoid arthriti s Follow Up of Rheumatoid arthriti s Follow Up of Rheumatoid arthriti s Follow Up of Rheumatoid arthriti s Follow Up of Rheumatoid arthriti s Follow Up of Rheumatoid arthriti s Follow Up of Rheumatoid arthriti s Follow Up of Rheumatoid arthriti s Follow Up of Rheumatoid arthriti s Follow Up of Rheumatoid arthriti s Follow Up of Rheumatoid arthriti s Follow Up of Rheumatoid arthriti s Follow Up of Rheumatoid arthriti s Follow Up of Rheumatoid arthriti s Follow Up of Rheumatoid arthriti s Follow Up of Rheumatoid arthriti s Follow Up of Rheumatoid arthriti s Follow Up of Rheumatoid arthriti s Follow Up of Rheumatoid arthriti s Follow Up of Rheumatoid arthriti s Functional Status Date Functional Assessmen t No Information Instructions Date Instruction Additional Infor mation No Information Assessments Type Assessment Date No Information Patient Care Teams Name Effective Dates (start - stop) Status Members No Information
[2022-11-26 16:15] LABS: Basophils Absolute Auto 0.05 K/uL (0.00-0.30); Basophils Percent Auto 0.7 % (0.0-3.0); Eosinophils Percent Auto 1.5 % (0.0-7.0); Hematocrit 39.2 % (33.0-51.0); Lymphocytes Absolute Auto 1.85 K/uL (0.90-2.90); Lymphocytes Percent Auto 27.7 % (20-44); Mean Corpuscular HGB Conc 33 gm/dL (32-36); Mean Corpuscular Hemoglobin 30 pg (26-34); Mean Corpuscular Volume 90 fL (80-100); Monocytes Percent Auto 8.4 % (0.0-11.0); Neutrophils Absolute Auto 4.11 K/uL (1.7-7.0); Neutrophils Percent Auto 61.7 % (42.0-72.0); Platelet Count* 317 K/uL (140-440); RDW Coefficient of Variation % 12.5 % (11.5-15.5); Red Blood Count 4.34 m/uL (4.00-5.20); White Blood Count* 6.67 K/uL (4.50-11.00)
[2022-11-26 16:17] LABS: Slide Review Reflex No
[2022-11-26 16:25] LABS: Chloride* 104 mmol/L (96-114); Sodium* 138 mmol/L (135-149)
[2022-11-26 16:26] LABS: Potassium* 3.8 mmol/L (3.6-5.1)
[2022-11-26 16:28] LABS: Creatinine* 0.8 mg/dL (0.5-1.5); Est. Creatinine Clearance* 69.42; Estimated Glomerular Filt Rate 88 ml/min
[2022-11-26 16:29] LABS: Anion Gap 10 mEq/L (7-15); Blood Urea Nitrogen* 16 mg/dL (7-30); Carbon Dioxide* 24 mmol/L (20-32); Glucose* 76 mg/dL (60-115)
[2022-11-26 16:32] LABS: C Reactive Protein* 0.6 mg/dL (0.5-1.0)
--- NOTE | 2022-11-26 16:49 | CRLHL7_ITS ---
For Patients: As a result of the Century Cures Act, medical imaging exams and procedure reports are released immediately into your electronic medical record. You may view this report before your referring provider. If you have questions, please contact your health care provider. Indication: Abdominal bloating, constipation. Technique: Abdomen 2 views. Permanently recorded images are archived. Comparison: None. Findings: Bowel: Nonobstructive bowel gas pattern. Moderate to large colonic stool burden. Other: No sign of free air. No sign of soft tissue mass. The lung bases are clear. The osseous structures are unremarkable for age. Impression: No evidence of an acute intra-abdominal process. Moderate to large colonic stool burden. Dictated by Robert Forde MD @ 11/26/2022 6:06:30 PM (Electronically Signed)
[2022-11-26 17:00] LABS: Thyroid Stimulating Hormone* 0.414 uIU/mL (0.270-4.20)
[2022-11-26] MEDS: LIDOCAINE 5% PATCH 1 PATCH TRANSDERMA (18:14)
== END 2022-11-26 18:17 | disposition home or self-care (01) ==
PROVIDERS: Emergency Provider Family Medicine; PCP Family Medicine
DX: K62.5 Hemorrhage of anus and rectum (principal); M53.3 Sacrococcygeal disorders, not elsewhere classified; K59.00 Constipation, unspecified
CPT/HCPCS: 36415; 74018; 80048; 84443; 85025; 86140; 99284; A9270